=== PATIENT | female | born 1985 | race Hispanic/Latino ===

== ENCOUNTER 2018-06-27 15:04 | Emergency (ER) | payer MEDICARE ==
[2018-06-27] MEDS ORDERED: ACETAMINOPHEN EXTRA STRENGTH 500 MG TABLET ONE (15:41)
[2018-06-27] MEDS ORDERED: FLUORESCEIN SODIUM 1 STRIP STRIP ONE (15:41)
[2018-06-27] MEDS ORDERED: DIPHENHYDRAMINE HCL 25 MG CAPSULE ONE (15:41)
[2018-06-27] MEDS ORDERED: LIDOCAINE HCL-MPF 1% 2ML VIAL ONE (15:42)
[2018-06-27] MEDS ORDERED: TETRACAINE HCL 0.5% 4 ML OPHTH SOLN ONE (15:42)
== END 2018-06-27 16:32 | disposition home or self-care (01) ==
LOC: EDH 15:04
DX: H10.9 Unspecified conjunctivitis (principal); F32.9 Major depressive disorder, single episode, unspecified
CPT/HCPCS: 99284; J3490; Q0163

== ENCOUNTER 2019-01-17 18:38 | Emergency (ER) | payer MEDICARE | END 2019-01-17 19:15 | disposition home or self-care (01) | LOC: EDH 18:38 | DX: H10.89 Other conjunctivitis (principal) ==

== ENCOUNTER 2025-03-25 17:31 | Emergency (ER) | payer OTHER, MEDICARE ==
[~2025-03-25] VITALS: Ht 165.1 cm; Wt 135.2 kg
[2025-03-25 17:48] VITALS: BP 130/80; PULSE 81; RESP 20; TEMP 98.3; O2SAT 96
[2025-03-25] MEDS ORDERED: AMOX1TAB16 PO (17:50)
--- NOTE | 2025-03-25 17:50 | ERN ---
ED Note History of Present Illness Stated Complaint: LT EAR PAIN Chief Complaint: Earache Time Seen by MD: 17:33 Time Seen by Midlevel: 17:33 Dictation: The patient is a 39-year-old female with a history of depression, hip surgery who presents to the emergency department with two days of left ear pain. Patient reports pressure and decreased hearing. Denies any fevers, denies any cough or sore throat. Allergies: Coded Allergies: No Known Drug Allergies (Unverified Allergy, Unknown, 03/25/25) Past Medical History Past Medical History: Depression Surgical History: None RN Note Reviewed/Agreed w/PFSH: Yes Review of System Dictation Constitutional: Negative for fever,chills, and weight loss Eyes: Negative for injury, pain,redness, and discharge ENT: Positive for left ear pain Cardiovascular: Negative for chest pain, palpitations, and edema Respiratory: Negative for shortness of breath, cough, and wheezing, Abdomen/GI: Negative for abdominal pain, nausea, vomiting, diarrhea, and constipation Back: Negative for injury and pain : Negative for injury, bleeding and discharge MS/Extremity: Negative for injury and deformity Skin: Negative for rash, and discoloration Neuro: Negative for headache, weakness, numbness, tingling, and seizure Psych: Negative for suicide ideation, homicidal ideation, and hallucinations Initial Vital Sign VS Vital Signs Date Time Temp Pulse Resp B/P (MAP) Pulse Ox O2 Delivery O2 Flow Rate FiO2 03/25/25 17:33 97.3 95 18 134/80 98 Physical Exam Dictation Vital Signs reviewed General Appearance: Alert, oriented x 3, no acute distress, well developed, nourished. Head and Face: non-traumatic. Eyes: PERRL, pink conjunctivas, eyelid no trauma, anterior chamber with arcus senilis. Ears: Pinnas intact and no signs of trauma or + erythema ear canals clear and no discharge TM + erythema to right left ear, tympanic membrane appears intact. Nose: No discharge, no bleeding. Oropharynx: Mouth normal, tongue pink. pharynx clear,no erythema, tonsils no exudates, no abscesses noted, mucous membrane moist Neck: Supple, non-tender, no thyromegaly, no masses, no JVD, no bruits Breast:Deferred Chest:No tenderness, no crepitus, no paradoxical movement, no retractions Lungs:Clear, well-ventilated, symmetric, no rales, no wheezing, no rhonchi, no stridor, good breath sounds bilaterally Heart: Regular rate, regular rhythm, no murmur, no gallops Vascular: no peripheral edema, Abdomen: Soft, positive bowel sounds, nondistended, no guarding, nontender, no rebound, no masses no hepatomegaly, no splenomegaly, no Smith's sign, no hernias. Rectal: Deferred Genital: Deferred Neurological: Normal speech, motor function intact, sensory function intact Musculoskeletal: Neck nontender, full range of motion, back nontender, full range of motion, Extremities: nontender, full range of motion Skin: Color pink, dry, no turgor, no rash, no lacerations, no abrasions, no contusions. Lymphatic: Deferred Results (Laboratory/Radiology) Labs Reviewed?: Yes ED Course ED Course Vital Signs Date Time Temp Pulse Resp B/P (MAP) Pulse Ox O2 Delivery O2 Flow Rate FiO2 03/25/25 17:33 97.3 95 18 134/80 98 Medical Decision Making MDM The patient is a 39-year-old female with a history of depression, hip surgery who presents to the emergency department with two days of left ear pain. Patient reports pressure and decreased hearing. Denies any fevers, denies any cough or sore throat. Left ear canal and tympanic membrane with a erythema. Patient has symptoms co nsistent with a otitis media. Patient will be discharged on antibiotics. Patient otherwise in no acute distress, nontoxic appearance, stable vital signs. Differential diagnosis: Otitis media, otitis externa, foreign body in ear Need for hospitalization: Patient does not meet criteria for hospitalization. There are no social concerns with this patient. DX & DISP Disposition: Discharge Departure Impression: Primary Impression: Left otitis media Condition: Stable Scripts Amoxicillin/Potassium Clav (Amox Tr-K Clv 875-125 mg Tab) 875 Mg-125 Mg Tablet 1 EACH PO BID for 7 Days, #14 TAB 0 Refills Prov: ORELLANAJAJAALIYA RETAIL AGENT 03/25/25 Additional Instructions: Please take your medications as prescribed. Follow up with the your primary doctor in 1-2 days. If symptoms worsen please return to ER. FOLLOW-UP WITH PRIMARY CARE PROVIDER IN 1 TO 2 DAYS. TAKE MEDICATIONS DIRECTED HERE IN THE EMERGENCY ROOM. OKAY TO CONTINUE HOME MEDICATIONS UNLESS OTHERWISE DISCUSSED DURING YOUR VISIT IN THE EMERGENCY ROOM TODAY. RETURN TO YOUR NEAREST EMERGENCY ROOM IF SYMPTOMS WORSEN OR IF THERE IS NO IMPROVEMENT. CALL 911 IF YOU NEED IMMEDIATE ASSISTANCE. TAKE TYLENOL [id number] NEEDED AND IF NO CONTRAINDICATIONS ARE PRESENT. INCREASE ORAL HYDRATION. A WOUND CULTURE OR URINE CULTURE WAS ORDERED HERE IN THE EMERGENCY ROOM DEPARTMENT PLEASE FOLLOW-UP WITH PRIMARY CARE PROVIDER AND ADVISE THEM TO GET REPEAT PORTS FROM OUR FACILITY. IF YOU HAD ANY JOSÉ MIGUEL WRAP/SPLINTS THAT WERE APPLIED HERE, PLEASE DO NOT REMOVE THEM UNTIL YOU SEE YOUR PRIMARY CARE OR SPECIALTY. Referrals: BABAR SCHROEDER MD (PCP) Time of Disposition: 17:48 I have reviewed the case, and I agree with, Diagnosis and Plan ALIYA ORELLANA RETAIL AGENT Mar 25, 2025 17:50
== END 2025-03-25 18:16 | disposition home or self-care (01) ==
LOC: EDH 17:31
DX: H66.92 Otitis media, unspecified, left ear (principal)
CPT/HCPCS: 99283